=== PATIENT | female | born 1945 | race African-American/Black ===

== ENCOUNTER 2019-03-14 13:13 | Outpatient (CLI) | payer MEDICARE, OTHER ==
--- NOTE | 2019-03-14 16:58 | MRI ---
MR ANGIOGRAM OF THE [place] OF [place]: 03/14/19 HISTORY: Pulsatile tinnitus in both ears. Constant ear pressure bilaterally. Symptoms x2.5 months. COMPARISON: None. 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 ANTERIOR CIRCULATION: Symmetric flow related signal in the A1 and M1 segments. Symmetric flow related signal in the proxim al A2 segment and proximal MCA branches. The visualized intracranial vertebral arteries and PICA artery origins are unremarkable. Both verteb ral arteries supply a normal appearing basilar artery with appropriate flow related signal. The left and right P1 segments have symmetric flow related signal. There is mild short segment stenosis involving the distal intracranial right vertebral artery. 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 Otherwise, unre markable MR angiogram of the [place]. POS: KYLEE
== END 2019-03-14 13:14 | disposition home or self-care (01) ==
LOC: BICMRI 13:13
PROVIDERS: ATTEND Specialist
DX: H93.A3 Pulsatile tinnitus, bilateral (principal); I65.01 Occlusion and stenosis of right vertebral artery
CPT/HCPCS: 70544

== ENCOUNTER 2019-07-20 11:29 | Outpatient (CLI) | payer MEDICARE, OTHER ==
--- NOTE | 2019-07-20 14:47 | CT ---
CT TEMPORAL BONE WITHOUT CONTRAST: INDICATIONS: Bilateral tinnitus. COMPARISON: No prior imaging comparison. FINDINGS: Right temporal bone: Vestibular cochlea apparatus and semicircular canals are unremarkable. The intra temporal course of the facial nerve is normal appearing. The ossicular chain is intact. There is no a bnormal dilatation of the vestibular or cochlear aqueducts. No evidence of scutal erosion. Tympanic m embrane is unremarkable. Mastoid air cells are patent. External auditory canal is unremarkable. Left temporal bone: Vestibular cochlea apparatus and semicircular canals are unremarkable. The intra temporal course of the facial nerve is normal appearing. The ossicular chain is intact. There is no a bnormal dilatation of the vestibular or cochlear aqueducts. No evidence of scutal erosion. Tympanic m embrane is unremarkable. Mastoid air cells are patent. External auditory canal is unremarkable. There is a small focal lucency at the posterior aspect of the mastoid segment, left temporal bone, just po sterior to the mastoid air cells, which likely relates to an arachnoid granulation. Incidental note of mild mucosal thickening of the paranasal sinuses. IMPRESSION: No significant temporal bone pathology is demonstrated bilaterally. POS: C
== END 2019-07-20 11:30 | disposition home or self-care (01) ==
LOC: BICCT 11:29
PROVIDERS: ATTEND Otolaryngology Otology & Neurotology
DX: H93.13 Tinnitus, bilateral (principal)
CPT/HCPCS: 70480